=== PATIENT | female | born 1960 | race Caucasian/White ===

== ENCOUNTER 2016-10-30 01:26 | Inpatient (IN) ==
[2016-10-30] MEDS ORDERED: VANCOMYCIN IV PER PHARMACY MISC SCH (04:45)
[2016-10-30] MEDS ORDERED: TYLENOL PO PRN (04:50)
[2016-10-30] MEDS ORDERED: ZOFRAN IV PRN (04:50)
[2016-10-30] MEDS: DILAUDID IV PRN ×2 (06:06→22:05)
[2016-10-30] MEDS: NS 1,000 ML IV SCH ×2 (06:08→19:41)
[2016-10-30] MEDS: ZOSYN 3.375 GM/NS 3.375 GM/50 ML IVPB IV SCH ×3 (06:08→17:05)
[2016-10-30] MEDS: HUMALOG SUBQ SCH ×4 (06:09→22:08)
[2016-10-30 06:17] LABS: MANUAL DIFF NEEDED? NO
[2016-10-30 06:24] LABS: BASO% 0.2 % (0.0-0.8); EOS# 0.07 X1000 (0.0-0.7); EOS% 0.6 % (0.0-10.0); HEMATOCRIT 32.6 % (37.0-47.0); HEMOGLOBIN 11.5 g/dL (12.0-16.0); IMM GRAN# 0.03 X1000 (0.0-0.04); IMM GRAN% 0.2 % (0.0-0.5); LYMPH# 2.96 X1000 (1.2-3.4); LYMPH% 23.5 % (20.5-51.1); MCH 27.9 PG (27-31); MCHC 35.3 g/dL (33-37); MCV 79.1 FL (81-99); MONO# 0.93 X1000 (0.11-0.59); MONO% 7.4 % (1.7-9.3); MPV 10.8 FL (7.4-10.4); NEUT% 68.1 % (42.2-75.2); PLT 163 X1000 (130-400); RBC 4.12 XMIL (4.2-5.4)
[2016-10-30 06:28] LABS: INR 1.09; PROTIME 11.5 Seconds (9.2-11.7)
[2016-10-30 06:34] LABS: RETIC% 1.4 % (0.8-2.1); RETIC-HE 28.9 PG (28.2-36.6)
[2016-10-30 06:44] LABS: AGAP 13; ALBUMIN 3.6 g/dL (3.5-5.0); ALKALINE PHOSPHATASE 75 U/L (32-104); BUN 18 mg/dL (8-22); CHLORIDE 99 mmol/L (98-107); COSMO 287; GOT 9 U/L (10-30); GPT 8 U/L (10-36); LDH 167 U/L (135-214); POTASSIUM 3.7 mmol/L (3.5-5.1); SODIUM 138 mmol/L (136-145); TCO2 26 mmol/L (25-35); TOTAL BILIRUBIN 0.87 mg/dL (0.20-1.00); TOTAL PROTEIN 6.9 g/dL (6.3-8.3)
[2016-10-30] MEDS ORDERED: VANCOMYCIN 1,500 MG in NS 250 ML IV ONE (07:00)
[2016-10-30] MEDS ORDERED: DIPRIVAN 1% ONE (09:02)
[2016-10-30] MEDS ORDERED: XYLOCAINE-MPF 2% ONE (09:02)
[2016-10-30] MEDS: ELAVIL PO SCH ×2 (09:37→12:48)
[2016-10-30] MEDS: PRINIVIL PO SCH ×2 (09:38→12:49)
[2016-10-30] MEDS: NEURONTIN PO SCH ×3 (09:39→17:06)
[2016-10-30] MEDS: HYDROXYZINE PO SCH ×3 (09:39→17:06)
[2016-10-30] MEDS ORDERED: ZOFRAN ONE (10:38)
[2016-10-30] MEDS ORDERED: MORPHINE ONE (10:41)
--- NOTE | 2016-10-30 10:42 | HISTORY AND PHYSICAL ---
CHIEF COMPLAINT: Right toe pain. HISTORY OF PRESENT ILLNESS: This is a 56-year-old female who was sent from [facility] for evaluation of her right great toe. She presented with a 1-week history of redness, swelling, and increased pain to the right great toe. She denied any injury. She does have a history of cellulitis. She denied fever, chills, nausea, vomiting, or bowel or bladder complaint. She did have a complaint of numbness and tingling in the bilateral lower extremities secondary to diabetic neuropathy. She has other past medical history such as insulin-dependent diabetes mellitus, hypertension, anxiety and depression. Initial laboratory data at [facility] showed an elevated white blood cell count, a glucose of 440, and an x-ray of her right great toe showed no acute fracture, but did note soft tissue gas. She was transferred for surgical consultation. PAST MEDICAL HISTORY: 1. Diabetes mellitus type 2, now insulin dependent. 2. Right lower extremity cellulitis. 3. Periodontal disease. 4. Urinary tract infection. 5. Diabetic neuropathy. 6. Hypertension. 7. Anxiety. PAST SURGICAL HISTORY: Hysterectomy with bilateral oophorectomy. SOCIAL HISTORY: No tobacco, alcohol or illicit drug use. FAMILY HISTORY: Mom had diabetes mellitus and coronary artery disease. HOME MEDICATIONS: 1. Metformin 1000 mg p.o. b.i.d. 2. Hydroxyzine 25 mg p.o. t.i.d. 3. Celexa 40 mg p.o. every night at bedtime. 4. Lisinopril 20 mg p.o. daily. 5. Levemir 50 units subcutaneously every night at bedtime. 6. Amitriptyline 50 mg p.o. daily. 7. Neurontin 600 mg p.o. t.i.d. ALLERGIES: Sulfa antibiotics. REVIEW OF SYSTEMS: A 14-point review of systems was conducted with the patient. Pertinent positives are listed above in the HPI. All other systems reviewed and found to be negative. PHYSICAL EXAMINATION: VITAL SIGNS: Temperature 99 degrees, pulse 85, respirations 16, blood pressure 137/70, oxygen saturation 96% on room air. GENERAL: A 56-year-old female lying in the medical floor bed in no acute distress. Answers all questions appropriately. HEENT: Head is atraumatic, normocephalic. Pupils equal, round, reactive to light. Extraocular eye movement intact. Sclerae are anicteric. Conjunctivae are mildly pale. Oral mucosa is dry. NECK: Supple. No JVD. No thyromegaly. Trachea is midline. CARDIAC: Regular rhythm. S1 and S2 appreciated. No murmurs, gallops, rubs. LUNGS: Clear to auscultation bilaterally. No rhonchi, wheezes or rales. ABDOMEN: Soft, nondistended, nontender. Bowel sounds present in all 4 quadrants. Normoactive. No pulsatile mass. No organomegaly. EXTREMITIES: No clubbing or cyanosis. Positive edema to right great toe with erythema. Callus noted on the plantar surface. Erythema extends to the dorsal portion of foot with streaking noted at the calf. Otherwise, no edema to the lower extremities. There are 2+ pedal pulses bilaterally. GENITOURINARY: The patient voids, otherwise deferred. NEUROLOGICAL: Alert and oriented x3. Cranial nerves 2 through 12 appear to be grossly intact. DIAGNOSTIC DATA: Repeat labs at our facility are pending. DIAGNOSTIC DATA: Laboratory data and x-rays from [facility] are as follows: WBC 14.5, hemoglobin 12.3, hematocrit 34.5, platelet count 174,000. Sodium 132, potassium 4, chloride 91, carbon dioxide 22, BUN 19, creatinine 1, glucose 440. X-ray of the right great toe showed no acute fracture. Soft tissue gas was noted. IMPRESSION AND PLAN: 1. Cellulitis versus gas gangrene. We will consult surgery to evaluate. An LDH level will be added to labs. Zosyn 3.375 was given in the emergency room at [facility]. We will continue Zosyn IV and had vancomycin, pharmacy to dose. 2. Diabetes mellitus type 2, now insulin dependent, with hyperglycemia. We will continue Levemir at 25 units. The patient is nothing by mouth at this time. Normal saline at 75 mL an hour. We will add sliding scale insulin with fingersticks before every meal and at bedtime. 3. Hypertension. Continue lisinopril. 4. Diabetic neuropathy. Continue Neurontin. 5. Anxiety and depression. Continue Celexa, hydroxyzine, and Elavil. Further recommendations per the patient's clinical course. Dictated by ERIK Baron for Francisco Farr MD cc: ERIK Baron MD
[2016-10-30] MEDS ORDERED: OFIRMEV 1000 MG/ISOTONIC SOLN 1,000 MG/100 ML BOTTLE ONE (10:43)
[2016-10-30] MEDS ORDERED: ROBINUL ONE ×2 (10:45→10:52)
[2016-10-30 11:22] LABS: HDL 25 mg/dL (45-65); LDL 45 mg/dL; TRIGLYCERIDES 109 mg/dL (35-135); VLDL 22 mg/dL
[2016-10-30] MEDS: DILAUDID ONE ×2 (11:37→11:43)
[2016-10-30] MEDS ORDERED: BENADRYL PO PRN (13:36)
--- NOTE | 2016-10-30 14:32 | CONSULTATION ---
DATE OF CONSULTATION: 10/30/2016 HISTORY OF PRESENT ILLNESS: This is a 56-year-old diabetic female who presents initially to [facility] with a 24-48 hour history of increasing toe pain and erythema. They are concerned about a localized toe infection. Obtained x-ray that showed a gas containing soft tissue and she was transferred here for further evaluation. She has felt generally poor over this period as well. Significant pain in her foot but no other complaints. MEDICAL HISTORY: Significant for diabetes and tobacco abuse, hypertension, SURGICAL HISTORY: She has had a cholecystectomy, hysterectomy, but no peripheral vascular coronary procedure. SOCIAL HISTORY: She smokes about a pack a day. No alcohol. No drugs. FAMILY HISTORY: Negative except for what is mentioned in her HPI. REVIEW OF SYSTEMS: Ten point negative other than what is mentioned in her HPI. PHYSICAL EXAMINATION: Vital Signs: Temperature is 97.9, pulse 89, blood pressure 128/74, O2 saturation 95% on room air. She is 172 pounds, 5 feet 3 inches. General: She is alert, in no acute distress. HEENT: No scleral icterus. No cervical masses or scars. Cardiovascular: Normal rate and regular rhythm. Pulmonary: No increased work of breathing. Abdomen: Soft, nontender, nondistended with no pulsatile masses. Integument exam: Warm, dry, without jaundice. Musculoskeletal Exam: Her right 1st toe is ecchymotic with areas of necrosis, fluid, purulent drainage, and possibly even some crepitus here, mostly extending from the wound on the plantar aspect. Peripheral vascular exam: She has 2+ pedal pulses in both locations bilaterally. Popliteal pulse palpable bilateral. Femoral pulse palpable bilaterally. DIAGNOSTIC DATA: Labs: White count is elevated at 12, hematocrit is 32, platelets 163,000, INR is 1.09. Creatinine 0.9, glucose 277, albumin is 3.6. I have reviewed her films from [facility] and she does have edema and gas containing within the soft tissues of the toe, appears on some views to extend down to level of bone. ASSESSMENT AND PLAN: A 56-year-old female, with an infected diabetic toe. She has necrosis and gas on her x-ray. I see very mild cellulitis starting to extend up the foot, but otherwise no compromise to adjacent toes or foot. Long discussion of risks, benefits, alternatives. I have recommended amputation of toe to expedite her care and wound healing and to save her leg from a progressive infection. She is on appropriate antibiotics at this point. She is n.p.o. She consents to procedure. We discussed the possibility of prolonged wound healing. She seemed to have adequate perfusion to heal this wound based off her peripheral vascular exam. Will go the operating room today for amputation of right 1st toe. We will make further recommendations regarding wound care after this. cc: MD Francisco Henry MD
[2016-10-30] MEDS: PERIDEX MT SCH ×2 (14:52→22:10)
--- NOTE | 2016-10-30 15:41 | OPERATIVE NOTE ---
PROCEDURE DATE: 10/30/2016 PREOP DIAGNOSIS: Diabetic right 1st toe infection. POSTOP: Diabetic right 1st toe infection. PROCEDURE PERFORMED: Amputation right 1st toe. ESTIMATED BLOOD LOSS: 10 mL. SPECIMENS: Right 1st toe. COMPLICATION: None. ANESTHESIA: General. INDICATION: This is a 56-year-old female, poorly controlled diabetes who presents with erythema, pain, purulent drainage with gas in the subcutaneous tissue on her x-ray of her right 1st toe. Amputation is indicated to facilitate wound healing and salvage remainder of foot. OPERATIVE FINDINGS: There is purulence extending down to the metatarsal phalangeal joint but otherwise healthy distal metatarsal. There was adequate blood supply. OPERATIVE NOTE: Risks, benefits, alternatives discussed with the patient, she consented the procedure. She is seen preoperatively and surgery be performed was confirmed. Surgical site was marked. She was taken to the operating room, placed supine position. General anesthesia induced. Right foot was prepped Betadine, draped in usual fashion. After time-out was performed an elliptical incision around the 1st toe was made with 15 blade scalpel. Carried down the level of the joint and the toe was removed in its entirety. We used a rongeur forceps to debride back the metatarsal head which is overall pretty healthy quality here. We irrigated the wound. There was no residual necrosis or purulence. As such, we closed the wound loosely with nylon sutures in vertical mattress fashion to facilitate ongoing drainage but also expedite wound healing. Counts correct x2. A Kerlix and loose Mendoza wrap was applied. She tolerated procedure well, transferred to recovery. I spoke with the family. cc: MD Francisco Henry MD
[2016-10-30] MEDS: LEVEMIR SUBQ SCH (22:07)
[2016-10-30] MEDS: CELEXA PO SCH (22:10)
[2016-10-31] MEDS: NS 1,000 ML IV SCH ×3 (01:31→23:28)
[2016-10-31] MEDS: ZOSYN 3.375 GM/NS 3.375 GM/50 ML IVPB IV SCH ×3 (02:56→16:02)
[2016-10-31] MEDS ORDERED: VANCOMYCIN 1 GM/NS 1 GM/250 ML IVPB IV SCH (06:00)
[2016-10-31 06:01] LABS: MANUAL DIFF NEEDED? NO
[2016-10-31 06:09] LABS: BASO% 0.2 % (0.0-0.8); EOS# 0.18 X1000 (0.0-0.7); HEMOGLOBIN 10.9 g/dL (12.0-16.0); LYMPH# 2.15 X1000 (1.2-3.4); LYMPH% 35.2 % (20.5-51.1); MCH 27.9 PG (27-31); MCHC 34.1 g/dL (33-37); MCV 81.8 FL (81-99); MONO# 0.55 X1000 (0.11-0.59); MPV 10.8 FL (7.4-10.4); NEUT% 52.6 % (42.2-75.2); PLT 152 X1000 (130-400); RBC 3.91 XMIL (4.2-5.4)
[2016-10-31 06:25] LABS: CALCIUM 8.7 mg/dL (8.8-10.2)
[2016-10-31] MEDS: HUMALOG SUBQ SCH ×4 (06:34→20:23)
[2016-10-31] MEDS: DILAUDID IV PRN ×3 (06:47→21:00)
[2016-10-31] MEDS: ELAVIL PO SCH (08:39)
[2016-10-31] MEDS: HYDROXYZINE PO SCH ×3 (08:39→16:03)
[2016-10-31] MEDS: NEURONTIN PO SCH ×3 (08:39→16:03)
[2016-10-31] MEDS: PRINIVIL PO SCH (08:39)
[2016-10-31] MEDS: PERIDEX MT SCH ×2 (08:41→23:30)
--- NOTE | 2016-10-31 09:43 | PROGRESS NOTE ---
DATE: 10/31/2016 SUBJECTIVE: Feels well. Minimal pain in her foot. OBJECTIVE: Vital Signs: No fevers. No tachycardia. Blood pressure 124/70, oxygen saturation is 97% on 2 L. General: She is alert. Extremities: Her dressing has some minimal serosanguineous. Her remaining toes are viable without cellulitis. Labs: White count is 6, hematocrit is 32. Creatinine is 1.2, glucose 171. ASSESSMENT AND PLAN: This is a 56-year-old female status post right 1st toe amputation. Leave her dressing in place today, remove it tomorrow. Plan for her to possibly go home tomorrow if her wound looks all right. I suspect it will. No plans for further surgical intervention at this point. cc: MD Francisco Henry MD
[2016-10-31 12:05] LABS: INR 1.07; PROTIME 11.3 Seconds (9.2-11.7)
[2016-10-31] MEDS ORDERED: NS 250 ML ONE (14:11)
--- NOTE | 2016-10-31 17:18 | PROGRESS NOTE ---
DATE: 10/31/2016 SUBJECTIVE: Patient reports feeling fine. No pain in the right lower extremity. No fever or chills. OBJECTIVE: Vital Signs: Temperature 98.5, heart rate 84, respiratory rate 20, blood pressure 126/75, 95% on room air. This is a 56-year-old female lying in bed in no acute distress. HEENT: Head is normocephalic, atraumatic. Anicteric sclerae and pale conjunctivae. Neck: Supple. No JVD noted. No carotid bruits. No lymphadenopathy. No thyromegaly. Cardiovascular: S1 and S2 heard. No murmurs, gallops, or rubs. Regular rate and rhythm. Respiratory: Clear bilaterally to auscultation. No work of breathing or using accessory muscles. Abdomen: Soft, nontender to palpation. Bowel sounds present. No organomegaly. Extremities: Right foot covered by dressing, clean and dry. Neurological: Patient alert oriented x3. Moves 4 extremities. LABORATORY DATA: White cell count 6.1, hemoglobin 10.9, hematocrit 32, platelets 152,000. Creatinine 1.2. ASSESSMENT AND PLAN: 1. Cellulitis of the right foot status post right 1st toe amputation. That was performed by Dr. Pop. They left some dressing today that is planning to be removed tomorrow. Surgery is planning to send this patient home tomorrow if the patient wound looks good. My concern is antibiotic therapy for home. This patient will need antibiotics. At this time, the patient is on vancomycin and Zosyn so I prefer to continue with the same management and we are going to consult Dr. Bhakta to see how long this patient will need antibiotic therapy. Patient is going . 2. Diabetes mellitus type 2. The diabetes has been controlled, and we are going to continue using a sliding scale insulin. 3. Hypertension. We will continue with lisinopril. 4. Diabetic neuropathy. We will continue with Neurontin. 5. Anxiety and depression. We will continue with home medications which are Celexa, hydroxyzine and Elavil. cc: MD Francisco Lewis MD
--- NOTE | 2016-10-31 21:37 | CONSULTATION ---
DATE OF CONSULTATION: 10/31/2016 CONCLUSION: Patient is status post amputation of the right great toe. There was cellulitis in the toe as well as gas. RECOMMENDATIONS: The patient has decreased hearing and her creatinine is up a little bit. Therefore, I think it would be better to switch the patient from vancomycin to doxycycline by mouth. Also, I have discontinued Zosyn and placed the patient on cefepime. DISCUSSION: The patient came in with a swollen, erythematous right great toe. She was taken to surgery by Dr. Pop who amputated the toe. There are no cultures present. The pathology report also is pending PAST MEDICAL HISTORY/REVIEW OF SYSTEMS: Eyes and ears: Patient has decreased hearing and vision. Neck: No stiffness. Respiratory: No cough or shortness of breath. Cardiovascular: No chest pain or palpitations. GI: No nausea, vomiting, or diarrhea. She is having low grade right-sided abdominal pain. : No dysuria or flank pain Endocrine: The patient is a diabetic but she does not have thyroid disease. Bones, joints, muscles: She is not complaining of any joint pain other than the right great toe or muscle aches. The remainder of the patient's review of systems was completed and was negative. [place] HISTORY: The patient is a 2 para 1, AB 1. She has had a hysterectomy and bilateral salpingo-oophorectomy. PAST SURGICAL HISTORY: Positive for labor and delivery, miscarriage, hysterectomy with bilateral oophorectomy. INFECTIOUS DISEASE HISTORY: Positive for pneumonia and UTI. SOCIAL HISTORY: [place] She smoke cigarettes. She does not drink alcoholic beverages or abuse drugs. ALLERGIES: She has an allergy to sulfa. HOME MEDICATIONS: Include metformin, hydroxyzine, Celexa, lisinopril, Levemir, amitriptyline and Neurontin. PHYSICAL EXAMINATION: Vital Signs: The temperature is 98.5 degrees, pulse 84, respirations 20, blood pressure 126/75. General: This is an obese middle-aged female who is in no acute distress. Head, eyes, ears, nose, and throat: She has decreased hearing. She can see near objects. She is missing most of her teeth and the ones presently there has poor oral hygiene. Neck: No meningismus. Lungs: Clear to auscultation. Cardiovascular: Heart rate is regular. I felt peripheral pulses in the left foot. The patient's right foot ankle had a large dressing on it and therefore I was not able to feel for peripheral pulses. Abdomen: Soft and nontender. Neurologic: Patient is awake. She can move her extremities. There is no tremor. She had decreased sensation to touch. Bones, joints, muscles: The patient's right foot and ankle had a large dressing around it. The dressing was intact. Neurologic: Patient is awake. She can move her extremities. There is no tremor. Patient's sensation to touch was diminished. FAMILY HISTORY: Positive for diabetes mellitus and coronary artery disease. Thank you for the consult. cc: MD Francisco Pyle MD
[2016-10-31] MEDS: MAXIPIME 2 GM/NS 2 GM/100 ML IVPB IV SCH (23:27)
[2016-10-31] MEDS: CELEXA PO SCH (23:28)
[2016-10-31] MEDS: DOXYCYCLINE PO SCH (23:29)
[2016-10-31] MEDS ORDERED: INSULIN PEN NEEDLES ONE (23:38)
[2016-10-31] MEDS: LEVEMIR SUBQ SCH (23:38)
[2016-11-01 06:18] LABS: MANUAL DIFF NEEDED? NO
[2016-11-01 06:22] LABS: BASO% 0.3 % (0.0-0.8); EOS# 0.17 X1000 (0.0-0.7); EOS% 2.9 % (0.0-10.0); HEMATOCRIT 28.2 % (37.0-47.0); HEMOGLOBIN 9.7 g/dL (12.0-16.0); MCHC 34.4 g/dL (33-37); MCV 81.5 FL (81-99); MONO# 0.48 X1000 (0.11-0.59); MONO% 8.1 % (1.7-9.3); MPV 10.7 FL (7.4-10.4); NEUT% 51.7 % (42.2-75.2); PLT 141 X1000 (130-400); RBC 3.46 XMIL (4.2-5.4)
[2016-11-01 07:21] LABS: CALCIUM 8.9 mg/dL (8.8-10.2); POTASSIUM 3.8 mmol/L (3.5-5.1)
--- NOTE | 2016-11-01 07:45 | PROGRESS NOTE ---
DATE: 11/01/2016 PRESENT ILLNESS: The patient is status post amputation of the right great toe. The toe had cellulitis and gas in the tissues. MEDICATIONS: The patient is now on a combination of doxycycline and cefepime. PHYSICAL EXAMINATION: Vital Signs: Temperature is 98.4 degrees, pulse 76, respirations 18, blood pressure 128/63. General: This is an obese, middle-aged female. She is in no acute distress. Lungs: Clear to auscultation. Cardiovascular: Regular heart rate. Abdomen: Soft and nontender. Extremities: I removed the dressing from the patient's right foot. There is surgical absence of the great toe. The area where the amputation is, is still somewhat erythematous. There is some visible tissue seen and it is beefy red in color. Neurologic: Patient is alert. She has decreased sensation in her distal legs. LAB AND X-RAY: There is no new x-ray. The lab shows a CBC with a white count of 5950, hemoglobin 9.7, and platelet count 141,000. Creatinine is 1. GFR is 57. ASSESSMENT AND PLAN: Patient is status post amputation of the right great toe. There still appears to be since cellulitis remaining in the foot. My plan is to continue cefepime and doxycycline. The patient's wound was partially opened. I took a culture from that area and I have sent it for Gram stain and culture. COMORBIDITIES: Include diabetes mellitus and the patient smokes cigarettes. cc: MD Francisco Pyle MD
[2016-11-01] MEDS: DILAUDID IV PRN (07:49)
[2016-11-01] MEDS: HUMALOG SUBQ SCH ×2 (07:51→10:58)
[2016-11-01] MEDS: DOXYCYCLINE PO SCH (07:59)
[2016-11-01] MEDS: PERIDEX MT SCH (08:00)
[2016-11-01] MEDS: NEURONTIN PO SCH ×2 (08:00→13:00)
[2016-11-01] MEDS: ELAVIL PO SCH (08:00)
[2016-11-01] MEDS: PRINIVIL PO SCH (08:00)
[2016-11-01] MEDS: HYDROXYZINE PO SCH ×2 (08:00→13:00)
[2016-11-01] MEDS: NS 1,000 ML IV SCH (10:39)
[2016-11-01] MEDS: MAXIPIME 2 GM/NS 2 GM/100 ML IVPB IV SCH (10:59)
--- NOTE | 2016-11-01 11:41 | PROGRESS NOTE ---
DATE: 11/01/2016 SUBJECTIVE: She has pain in her foot especially when she tries to walk. No other events. No fevers. No tachycardia. OBJECTIVE: Vital signs: Blood pressure 170/86, saturation 98% on room air. General: She is alert, no acute distress. Extremities: Right foot incision is intact with sutures with a stable opening in the center. No cellulitis. No drainage. The remainder of her toes are viable. LABORATORY: White count normal at 5, hematocrit 28. Creatinine is 1.0. Glucose is elevated at 230. ASSESSMENT AND PLAN: This 56-year-old female is status post amputation right 1st toe for diabetic foot infection. The cellulitis has resolved. I talked to Dr. Bhakta. We are going to transition her to oral antibiotics. I think when her glucose is better controlled she will be fine to go home and from a surgical standpoint I do not plan any other surgery. I can see her in the next 1- 2 weeks at [facility]. I have given her my contact information. In the meantime I am going to order her an off-loading rocker bottom boot that she will use going forward. I appreciate the hospitalist's assistance with this patient. cc: MD Francisco Henry MD
[2016-11-01 14:40] VITALS: BP 164/78
--- NOTE | 2016-11-02 14:27 | DISCHARGE SUMMARY ---
ADMISSION DATE: 10/30/2016 DISCHARGE DATE: 11/01/2016 CONSULTATIONS: Dr. Darryl Pop with General Surgery. Dr. Jimbo Bhakta with Infectious Disease. PERTINENT PROCEDURES: Amputation of right 1st toe performed by Dr. Darryl Pop. DISCHARGE DIAGNOSES: 1. Diabetic foot infection status post amputation of right 1st toe. The patient is being discharged home with p.o. antibiotics. Will follow up with Dr. Darryl Pop in 1-2 weeks at [facility]. The patient will be given an offloading rocker bottom boot. Stable. 2. Cellulitis. Resolving. Continue on p.o. antibiotics. 3. Diabetes mellitus type 2. Continue on Levemir and metformin. 4. Hypertension. Continue lisinopril. 5. Diabetic neuropathy. Continue with Neurontin. 6. Anxiety and depression. Continue with home medication. HOSPITAL COURSE: Ms. Guy a 56-year-old female, who carries a past medical history of diabetes mellitus type 2 insulin dependent, right lower extremity cellulitis, periodontal disease, urinary tract infection, diabetic neuropathy, hypertension and anxiety. She was sent from [facility] for evaluation of her right great toe. She had a 1-week history of redness, swelling and increased pain to her right great toe. She denied any injury. She denied fever , chills, nausea or vomiting. Her initial laboratory data are [facility] showed an elevated white count and a blood glucose of 440. An x-ray of her right great toe showed no acute fracture but did note soft tissue gas for which she was transferred for surgical consultation. She was started on IV Zosyn as well as vancomycin. The patient underwent amputation of her right 1st toe secondary to her infection along with a very mild cellulitis extending up to foot. The amputation was performed by Dr. Darryl Pop. Dr. Jimbo Bhakta was asked to assist with the patient. He changed The patient from vancomycin to doxycycline in reference to her decreased hearing and an elevation in her creatinine, and changed her to doxycycline as well as discontinue her Zosyn and placing her on cefepime. Dr. Pop and Dr. Bhakta have discussed the patient's case. They have transitioned her from IV to oral antibiotics. Her blood glucoses are under better control. From surgical standpoint Dr. Pop does not plan any other surgery. He will plan to see her in the next 1-2 weeks at the [facility]. He has given her his contact information. In the meantime he has given her an order for offloading rocker bottom boot which she will use going forward. The patient is being discharged home with home health. VITAL SIGNS AT TIME OF HER DISCHARGE: Blood pressure 99.6 degrees, heart rate 81, respirations 24, blood pressure 178/86, O2 is 95% on room air. DISCHARGE DIET: Diabetic. DISCHARGE MEDICATIONS: 1. Amitriptyline 50 mg p.o. daily. 2. Cefuroxime 500 mg p.o. b.i.d. 3. Citalopram HBr 40 mg p.o. at bedtime. 4. Doxycycline 100 mg p.o. b.i.d. 5. Gabapentin 600 mg p.o. 3 times daily. 6. [employer] 5, 1 each p.o. q.4 hours p.r.n. 7. Hydroxyzine 25 mg p.o. 3 times daily. 8. Levemir 50 units subcutaneous at bedtime. 9. Lisinopril 20 mg p.o. daily. 10. Metformin 1000 mg p.o. b.i.d. 11. Fish oil 300 mg p.o. daily. 12. Zofran 4 mg p.o. q.6 hours p.r.n. FOLLOWUP: Patient is being discharged home with an offloading rocker bottom boot and p.o. antibiotics to follow up with Dr. Darryl Pop in 1-2 weeks. She will remain on a diabetic diet and take her diabetic medications as prescribed. The patient can return to the ED for any worsening of symptoms. DISCHARGE TIME: Thirty two minutes. Dictated by ERIK Benoit for Wilfredo Sahni MD cc: Wilfredo Sahni MD [facility]
== END 2016-11-01 18:22 | disposition home health service (06) ==
LOC: MERGE 01:26 → DIRADM 01:26 → SUATTDRO 01:26 → 4N 03:15
PROVIDERS: ATTEND Internal Medicine